=== PATIENT | female | born 1965 | race Caucasian/White ===

== ENCOUNTER 2016-07-22 04:50 | Emergency (ER) | payer OTHER ==
[~2016-07-22] VITALS: Ht 154.9 cm; Wt 73.0 kg
[~2016-07-22 04:50] MED LIST: ANTIVERT 25 MG25 M1 PO; ASPIRIN81 M1 PO; HYDROCODONE/ACE1 TA1 PO; NADOLOL40 MG PO; TRAMADOL HCL50 MG PO; VALIUM5 M1 PO; ZINC CHELATED50 M1 PO
--- NOTE | 2016-07-22 05:58 | ED HAND/WRIST INJURY COMPLAINT ---
History of Present Illness General Chief Complaint: Hand or Wrist Injury Stated Complaint: LEFT HAND PAIN FROM FINGERTIPS TO ELBOW Source: patient, old records Exam Limitations: no limitations Vital Signs & Intake/Output Vital Signs & Intake/Output Vital Signs Date Time Temp Pulse Resp B/P Pulse O2 O2 Flow FiO2 Ox Delivery Rate 07/22 0704 96.5 78 18 125/68 96 Room Air 07/22 0504 97.7 96 18 120/82 97 Room Air Allergies Coded Allergies: codeine (HIVES AND GI 07/22/16) naproxen (UNKNOWN 07/22/16) ibuprofen (ABDOMINAL PAIN 07/22/16) oxycodone (Gi 07/22/16) Reconcile Medications Aspirin 81 MG CTB 1 TAB PO DAILY HEART HEALTH (Reported) Diazepam (Valium) 5 MG TAB 1 TAB PO Q8H PRN DIZZINESS HYDROCODONE/ACETAMINOPHEN (Hydrocodon-Acetaminophen 5-325) 1 TAB TAB 1-2 TAB PO Q6P PRN PAIN Meclizine (Antivert) 25 MG TAB 1 TAB PO Q8H PRN DIZZINESS Nadolol 40 MG TAB 1 TAB PO BID HEART (Reported) TRAMADOL HCL (Tramadol HCl) 50 MG TAB 1-2 TAB PO Q6P PRN PAIN Zinc (Zinc Chelated) 50 MG TAB 1 TAB PO DAILY SUPPLEMENT (Reported) Triage Note: PT C/O PAIN FROM FINGERTIPS TO ELBOW LT SIDE, NO KNOWN INJURY,UNABLE TO MOVE FINGERS, + RADIAL PULSE Triage Nurses Notes Reviewed? yes HPI: Patient presents for evaluation of left hand and wrist pain that began last week. Patient states that the hand has been "locking up". She states that that resolved after about 12 hours. About 2 days ago she had an episode where the right hand had redness dorsally and decreased range of motion. This to resolve. After that the left hand became painful with decreased range of motion of the wrist and fingers. The pain involves the whole hand and wrist and all of the fingers. She tried Aleve without relief (last dose about 8 PM last night. The patient denies any associated visual changes or known trauma. 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 Nothing seems to make her hand feel better. Patient denies neck pain. (NATHANIEL MARTIN,DIANA Nelson) Past History Travel History Traveled to [place] past 21 day No Medical History Any Pertinent Medical History? see below for history Neurological: migraine EENT: NONE Cardiovascular: SVT Respiratory: NONE Gastrointestinal: RECTAL BLEEDING Hepatic: NONE Renal: NONE Musculoskeletal: NONE Psychiatric: NONE Endocrine: NONE Blood Disorders: NONE Cancer(s): NONE Surgical History Surgical History: non-contributory Psychosocial History What is your primary language [place] Tobacco Use: Current Daily Use Daily Tobacco Use Amount/Type: => 5 Cigarettes daily Family History Hx Contributory? No (NATHANIEL MARTIN,DIANA Nelson) Review of Systems Review of Systems Constitutional: Reports: no symptoms. EENTM: Reports: no symptoms. Respiratory: Reports: no symptoms. Cardiovascular: Reports: no symptoms. GI: Reports: no symptoms. Genitourinary: Reports: no symptoms. Musculoskeletal: Reports: see HPI. Skin: Reports: no symptoms. Neurological/Psychological: Reports: no symptoms. Hematologic/Endocrine: Reports: no symptoms. Immunologic/Allergic: Reports: no symptoms. All Other Systems: Reviewed and Negative (NATHANIEL MARTIN,DIANA Nelson) Physical Exam Physical Exam Hand Left: SEE BELOW Hand Right: normal inspection Comments: Gen.: Well-nourished, well-developed, no acute respiratory distress. Head: Normocephalic, atraumatic. Eyes: Normal inspection bilaterally Ears: Normal inspection bilaterally Nose: Normal inspection, nasal cannula in place Throat/mouth : Moist mucosa Neck: Supple, full range of motion, no goiter Heart: Regular rate and rhythm Lungs: Quiet respirations Back: Normal range of motion Extremities: Left upper extremity: Tenderness of the left wrist hand and fingers , sensation intact to light touch to the wrist hand and fingers, normal capillary refill to all fingers. No apparent trauma or ecchymoses. Decreased range of motion of the wrist and fingers due to pain. There is tenderness to percussion over the left carpal tunnel. 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 (NATHANIEL MARTIN,DIANA Nelson) Diagnostic Imaging: Viewed by Me: Radiology Read. Discussed w/RAD: Radiology Read. Radiology Impression: PATIENT: AXEL MANZANARES PRESENT AGE: 50 PATIENT ACCOUNT NO: [id number] : 69 LOCATION: [facility] ORDERING PHYSICIAN: DIANA ARMSTRONG MD SERVICE DATE: 07/22/16 EXAM TYPE: RAD - XRY-HAND, LEFT; XRY-WRIST COMPLETE-LEFT EXAMINATION: LEFT WRIST AND HAND CLINICAL INFORMATION: Pain COMPARISON: Left wrist films 07/01/2012 TECHNIQUE: 3 views of the left wrist. 3 views of the left hand FINDINGS: Metallic clips are again noted in the soft tissues adjacent to the radial styloid process unchanged from 2013. No fracture, dislocation, or other acute bony or joint space abnormality is seen in the left wrist or hand. No focal bone lesion identified. Joint spaces are preserved in the wrist and hand. IMPRESSION: No acute bony or joint space abnormality is seen in the left wrist and hand. Joint spaces are grossly normal in appearance. Metallic clips in the soft tissues adjacent to the distal radius unchanged DICTATED BY: MARCELLUS SALAZAR MD DATE/ TIME DICTATED:07/22/16717 INVESTIGATIVE AGENT:CHAVA DATE/TIME TRANSCRIBED: 07/22/16717 CONFIDENTIAL, DO NOT COPY WITHOUT APPROPRIATE AUTHORIZATION. < Electronically signed in Other Vendor System> SIGNED BY: MARCELLUS SALAZAR MD 07/22/16724 (YAMILET DEE MD) Departure Departure Disposition: HOME OR SELF CARE Condition: Stable Clinical Impression Primary Impression: Left wrist pain Departure Forms: Customer Survey General Discharge Information (NATHANIEL MARTIN,DIANA Nelson) Departure Referrals: CAN MARTIN,SHANNON RAMIREZ MD,CHAN (PCP/Family) Additional Instructions: WEAR SPLINT FOR COMFORT RETURN IF SYMPTOMS WORSEN OR FOR ANY COCNERNS (YAMILET DEE MD) Procedures Splinting Location: LWRIST Pre-Made Type: velcro Splint: wrist Splint Applied By: splint applied by wi Pre-Proc Neuro Vasc Exam: normal Post-Proc Neuro Vasc Exam: normal (YAMILET DEE MD)
[2016-07-22 07:04] VITALS: BP 125/68
--- NOTE | 2016-07-22 07:25 | RADIOLOGY REPORT ---
EXAMINATION: LEFT WRIST AND HAND CLINICAL INFORMATION: Pain COMPARISON: Left wrist films 07/01/2012 TECHNIQUE: 3 views of the left wrist. 3 views of the left hand FINDINGS: Metallic clips are again noted in the soft tissues adjacent to the radial styloid process unchanged from 2013. No fracture, dislocation, or other acute bony or joint space abnormality is seen in the left wrist or hand. No focal bone lesion identified. Joint spaces are preserved in the wrist and hand. IMPRESSION: No acute bony or joint space abnormality is seen in the left wrist and hand. Joint spaces are grossly normal in appearance. Metallic clips in the soft tissues adjacent to the distal radius unchanged
== END 2016-07-22 08:00 ==
LOC: ERH 04:50
DX: M25.532 Pain in left wrist (principal)
CPT/HCPCS: 73110-LT; 73130-LT; 96372; J1885

== ENCOUNTER 2016-11-20 14:19 | Inpatient (IN) | payer OTHER ==
[~2016-11-20] VITALS: Ht 154.9 cm; Wt 68.9 kg
--- NOTE | 2016-11-20 14:37 | NUR ---
PT C/O LOWER BACK PAIN THAT RADIATES INTO ABDOMEN. PT STATES SHE FEELS LIKE HER ABDOMEN IS BLOATED SO SHE TOOK A GAS X BUT IT DIDN'T HELP. PT TAKING PLAQUNIL FOR HER RECENTLY DIAGNOSED RA. STATES SOME DIARRHEA THIS MORNING
--- NOTE | 2016-11-20 15:33 | NUR ---
IV ESTABLISHED, PT STATING SHE HAS HAD LOWER BACK PAIN THAT HAS BEEN RADIATING TO HER PELVIC AREA X 1 DAY, REPORTING DIFFUSE PELVIC PAIN, DIFFUSELY TENDER BILATERAL LOWER QUADRANTS. REPORTING INTERMITTENT DIARRHEA WHICH IS A BASELINE FOR PATIENT.
[2016-11-20 15:42] LABS: ABSOLUTE BASOPHIL COUNT 0 /CUMM (0.0-0.2); ABSOLUTE EOSINOPHIL COUNT 0 /CUMM (0.0-0.7); ABSOLUTE GRANULOCYTE CT 11.3 /CUMM (1.4-6.5); ABSOLUTE LYMPH COUNT 1.3 /CUMM (1.2-3.4); ABSOLUTE MONOCYTE COUNT 0.9 /CUMM (0.10-0.60); BASOPHIL % 0.2 % (0.0-2.0); EOSINOPHIL % 0.4 % (0-5); GRANULOCYTE % 83.1 % (42.2-75.2); HEMATOCRIT 37.5 % (37-47); MEAN CORPUSCULAR HGB 28.3 PG (27.0-31.0); MEAN CORPUSCULAR HGB CONC 33.3 G/DL (33.0-37.0); MEAN CORPUSCULAR VOLUME 85.2 FL (81.0-99.0); MEAN PLATELET VOLUME 7.6 FL (7.4-10.4); PLATELET COUNT 381 /CUMM (130-400); RBC DISTRIBUTION WIDTH 13.9 % (11.5-14.5); WHITE BLOOD CELL COUNT 13.6 /CUMM (4.8-10.8)
--- NOTE | 2016-11-20 15:44 | NUR ---
DR TIRADO TO BEDSIDE TO DARVIN
[2016-11-20] MEDS ORDERED: HYDROXYCHLOROQ200 M2 PO (16:03)
[2016-11-20] MEDS ORDERED: VITAMIN D2000 UNI1 PO (16:04)
[2016-11-20] MEDS ORDERED: ZANTAC150 M1 PO (16:04)
--- NOTE | 2016-11-20 16:13 | NUR ---
PT MEDICATED PER EMAR, REQUESTING TO STAY IN OWN SCRUBS.
--- NOTE | 2016-11-20 16:22 | NUR ---
URINE TRIO SENT
--- NOTE | 2016-11-20 16:51 | CT SCAN REPORT ---
EXAMINATION: CT ABDOMEN AND PELVIS WITH CONTRAST CLINICAL INFORMATION: Bilateral lower quadrant tenderness. Lower back pain. COMPARISON: CT abdomen and pelvis 09/29/2012. TECHNIQUE: Multidetector volumetric imaging was performed of the abdomen and pelvis before and after the IV administration of 95 mL of Optiray 320 intravenous contrast. Sagittal and coronal reformatted images were obtained on the technologist's workstation. DLP: 336 mGy-cm FINDINGS: LUNG BASES: The visualized lung bases are unremarkable. LIVER, GALLBLADDER, AND BILIARY TREE: The liver is normal in size, shape, and attenuation. No focal hepatic lesion or biliary ductal dilatation is present. The gallbladder is unremarkable with no evidence of radiopaque gallstones, gallbladder wall thickening, or obvious pericholecystic inflammatory changes. PANCREAS: Unremarkable. SPLEEN: Unremarkable. ADRENAL GLANDS: Unremarkable. KIDNEYS AND URETERS: The kidneys are normal in size, shape, and attenuation. No hydronephrosis, hydroureter, or calculi seen. No perinephric stranding. BLADDER: Unremarkable. GASTROINTESTINAL TRACT: Scattered colonic diverticulosis, notably involving the descending and rectosigmoid colon. Circumferential thickening and pericolonic inflammatory changes surrounding a segment of the sigmoid colon, spanning approximately 7.8 cm in length within the left lower quadrant of the abdomen. No extraluminal foci of air to suggest perforation and no pericolonic fluid collections. Normal anatomic orientation of the stomach relative to the duodenum. Normal caliber of abdominal and pelvic bowel loops, without evidence of obstruction or ileus. The appendix is surgically absent. ABDOMINAL WALL: No significant hernia is appreciated. LYMPH NODES: No significant abdominal or pelvic adenopathy. VASCULAR: Patent abdominal vasculature. Normal course and caliber of the abdominal aorta and its branching vessels, without aneurysmal dilatation. PELVIC VISCERA: Unremarkable. OSSEOUS STRUCTURES: No acute osseous abnormality. Normal alignment of the imaged thoracolumbar spine. No visible destructive osseous lesions. IMPRESSION: Scattered colonic diverticulosis, notably involving the descending and rectosigmoid colon. Circumferential thickening and pericolonic inflammatory changes surrounding a segment of the sigmoid colon, spanning approximately 7.8 cm in length within the left lower quadrant of the abdomen. Primary diagnostic consideration is for acute uncomplicated sigmoid diverticulitis. No extraluminal foci of air to suggest perforation and no pericolonic fluid collections.
--- NOTE | 2016-11-20 17:36 | ED GI/GU/ABDOMINAL COMPLAINT ---
History of Present Illness General Chief Complaint: General Adult Stated Complaint: LOWER BACK RADIATING TO PELVIS Source: patient, family, old records Exam Limitations: no limitations Vital Signs & Intake/Output Vital Signs & Intake/Output Vital Signs Date Time Temp Pulse Resp B/P B/P Pulse O2 O2 Flow FiO2 Mean Ox Delivery Rate 11/20 1717 97.8 100 20 98/60 99 Room Air 11/20 1509 99 Room Air 11/20 1436 97.0 102 20 111/69 100 Room Air Allergies Coded Allergies: codeine (HIVES AND GI 07/22/16) naproxen (hernández gi 11/20/16) ibuprofen (ABDOMINAL PAIN 07/22/16) oxycodone (PROJECTILE VOMITING 11/20/16) Reconcile Medications Cholecalciferol (Vitamin D3) (Vitamin D) 2,000 UNIT TABLET 1 TAB PO DAILY SUPPLEMENT (Reported) Hydroxychloroquine Sulfate 200 MG TABLET 1 TAB PO DAILY RA (Reported) Magnesium Oxide (Magnesium) 500 MG CAPSULE 1 CAP PO DAILY supplement ( Reported) Ranitidine HCl (Zantac) 150 MG TABLET 2 TAB PO BID GI (Reported) Triage Note: PT C/O LOWER BACK PAIN THAT RADIATES INTO ABDOMEN. PT STATES SHE FEELS LIKE HER ABDOMEN IS BLOATED SO SHE TOOK A GAS X BUT IT DIDN'T HELP. PT TAKING PLAQUNIL FOR HER RECENTLY DIAGNOSED RA. STATES SOME DIARRHEA THIS MORNING Triage Nurses Notes Reviewed? yes LMP (ages 10-50): hysterectomy ? n Is pt currently ? No Onset: yesterday Duration: day(s):, constant, continues in ED, getting worse Timing: recent history Quality/Severity: aching, severe Location: left lower quadrant, right lower quadrant Radiation: back Activities at Onset: none Prior Abdominal Problems: similar symptoms Past Sexual History: Unobtainable at this time Modifying Factors: Worsens With: eating, palpation. Associated Symptoms: abdominal pain, loss of appetite, nausea/vomiting, back pain HPI: 1 day prior to admission patient complains of loss of appetite back pain radiating to the bilateral lower quadrant described as achy severe sharp associated with nausea anorexia diarrhea. Denies fever chills chest pain cough shortness of breath headache dysuria rash bleeding. Past History Travel History Traveled to [place] past 21 day No Medical History Any Pertinent Medical History? see below for history Neurological: migraine EENT: NONE Cardiovascular: SVT Respiratory: NONE Gastrointestinal: RECTAL BLEEDING Hepatic: NONE Renal: NONE Musculoskeletal: NONE Psychiatric: NONE Endocrine: NONE Blood Disorders: NONE Cancer(s): NONE Surgical History Surgical History: non-contributory Psychosocial History What is your primary language Kyrgyz Tobacco Use: Current Daily Use Daily Tobacco Use Amount/Type: => 5 Cigarettes daily ETOH Use: occasional use Illicit Drug Use: denies illicit drug use Family History Hx Contributory? No Review of Systems Review of Systems Constitutional: Reports: no symptoms. EENTM: Reports: no symptoms. Respiratory: Reports: no symptoms. Cardiovascular: Reports: no symptoms. GI: Reports: see HPI, abdominal pain, diarrhea, nausea, vomiting. Genitourinary: Reports: no symptoms. Musculoskeletal: Reports: see HPI, back pain. Skin: Reports: no symptoms. Neurological/Psychological: Reports: no symptoms. Hematologic/Endocrine: Reports: no symptoms. Immunologic/Allergic: Reports: no symptoms. All Other Systems: Reviewed and Negative Physical Exam Physical Exam General Appearance: well developed/nourished, alert, awake, anxious, severe distress, obese Head: atraumatic, normal appearance Eyes: Bilateral: normal appearance, PERRL, EOMI, normal inspection. Ears, Nose, Throat, Mouth: hearing grossly normal, moist mucous membrane Neck: normal inspection, supple, full range of motion, normal alignment Respiratory: normal breath sounds, chest non-tender, no respiratory distress, quiet respiration, lungs clear Cardiovascular: regular rate/rhythm, normal peripheral pulses, norml femoral pulses equa Peripheral Pulses: 4+ carotid (R), 4+ carotid (L) Gastrointestinal: soft, abnormal bowel sounds, distention, tenderness Back: normal inspection, normal range of motion Extremities: normal range of motion, no ligament instability Neurologic/Psych: no motor/sensory deficits, awake, alert, oriented x 3, normal gait, normal mood/affect Skin: intact, normal color, warm/dry Core Measures ACS in differential dx? No Severe Sepsis Present: No Septic Shock Present: No Progress Differential Diagnosis: bowel obstruction, diverticulitis, gastritis, pancreatitis, SBO Plan of Care: Orders Procedure Date/time Status Regular Diet 11/21 B Active BLOOD CULTURE 11/20 1811 Active Patient Data 11/20 1805 Active OXYGEN SETUP (GEN) 11/20 173 Active Saline Lock 11/20 1736 Active Admit to inpatient 11/20 1736 Active Vital Signs 11/20 173 Active Activity/Ambulation 11/20 1736 Active Code Status 11/20 173 Active Add-on Test (ER Only) 11/20 1551 Active URINALYSIS 11/20 1551 Complete LIPASE 11/20 1521 Complete LACTIC ACID 11/20 1521 Complete COMPREHENSIVE METABOLIC PANEL 11/20 1515 Complete CBC WITHOUT DIFFERENTIAL 11/20 1515 Complete Current Medications Sig/Susanna Start time Last Medication Dose Stop Time Status Admin Metronidazole 500 MG IQ8 11/21 0000 UNVr (Flagyl) N/A 1 UNIT (No Carrier) Famotidine 20 MG BID 11/20 2200 UNVr (Pepcid) Hydroxychloroquine 200 MG DAILY 11/20 182 UNVr Sulfate (Plaquenil 200MG Tab) Ceftriaxone Sodium 1,000 MG DAILY 11/20 181 UNVr (Rocephin) Laboratory Tests 11/20/16 1618: Urinalysis LIGHT H, Urine Color YEL, Urine Clarity CLEAR, Urine pH 6.0, Ur Specific [place] 1.015, Urine Protein NEG, Urine Ketones NEG, Urine Nitrite NEG, Urine Bilirubin NEG, Urine Urobilinogen 0.2, Ur Leukocyte Esterase NEG, Ur Microscopic SEDIMENT EXAMINED, Urine RBC 1-3, Urine WBC RARE, Urine Bacteria RARE H, Urine Hemoglobin MOD H, Urine Glucose NEG 11/20/16 1521: Anion Gap 13, Estimated GFR > 60, BUN/Creatinine Ratio 18.6, Glucose 81, Lactic Acid 1.1, Calcium 9.6, Total Bilirubin 0.7, AST 15, ALT 24, Alkaline Phosphatase 87, Total Protein 7.0, Albumin 4.3, Globulin 2.7, Albumin/Globulin Ratio 1.6, Lipase 272, CBC w Diff NO MAN DIFF REQ, RBC 4.40, MCV 85.2, MCH 28.3, RDW 13.9, MPV 7.6, Gran % 83.1 H, Lymphocytes % 9.5 L, Monocytes % 6.8, Eosinophils % 0.4, Basophils % 0.2, Absolute Granulocytes 11.3 H, Absolute Lymphocytes 1.3, Absolute Monocytes 0.9 H, Absolute Eosinophils 0, Absolute Basophils 0, PUBS MCHC 33.3 Microbiology 11/20 1810 BLOOD: Blood Culture - ORD 11/20 1810 BLOOD: Blood Culture - ORD Diagnostic Imaging: Viewed by Me: CT Scan. Discussed w/RAD: CT Scan. Radiology Impression: Scattered colonic diverticulosis, notably involving the descending and rectosigmoid colon. Circumferential thickening and pericolonic inflammatory changes surrounding a segment of the sigmoid colon, spanning approximately 7.8 cm in length within the left lower quadrant of the abdomen. Primary diagnostic consideration is for acute uncomplicated sigmoid diverticulitis. No extraluminal foci of air to suggest perforation and no pericolonic fluid collections. Initial ED EKG: none Departure Departure Disposition: STILL A PATIENT Condition: Stable Clinical Impression Primary Impression: Diverticulitis Qualifiers: Diverticulitis site: unspecified part of intestinal tract Diverticulitis bleeding: without bleeding Diverticulitis complication: without perforation or abscess Qualified Code: K57.92 - Diverticulitis of intestine, part unspecified, without perforation or abscess without bleeding Secondary Impressions: Back pain Qualifiers: Back pain location: low back pain Chronicity: acute Back pain laterality: bilateral Sciatica presence: without sciatica Qualified Code: M54.5 - Low back pain Referrals: CHAN RAMIREZ MD (PCP/Family) Departure Forms: Customer Survey General Discharge Information Admission Note Spoke With: CHAN RAMIREZ MD Documentation of Exam: Documentation of any treatments & extenuating circumstances including Concerns Regarding Discharge (functional status, medication knowledge or non-compliance, living conditions, etc.) that warrant an admission rather than observation: IV analgesia IV antibiotics IV antiemetics IV fluids advance diet medication adjustment serial lab exam continuing care discharge planning
[2016-11-20] MEDS ORDERED: MAGNESIUM500 M2 PO (18:22)
--- NOTE | 2016-11-20 18:22 | History & Physical ---
FABIANA MARTIN,NUBIA 11/20/16 9510: General Information and HPI MD Statement: I have seen and personally examined AXEL MANZANARES and documented this H&P. The patient is a 50 year old F who presented with a patient stated chief complaint of [abdominal pain and diarrhea]. Source of Information: patient Exam Limitations: no limitations History of Present Illness: Patient is a 50-year-old female with past medical history significant for SVT, rectal bleeding, ocular migraines, recurrent diverticulitis, recently diagnosed limited arthritis (started on plaquinel) presented [facility] due to lower abdominal pain and diarrhea started 1 day prior to admission. Patient started experiencing diarrhea yesterday had around 7-8 episodes coffee-ground in color and nonbloody followed by lower back pain radiating to front. Her pain progressively worsened today morning. She had a single episode of diarrhea today, however her abdominal pain got worse despite taking Gas-X. Her pain is 7 -8/10, spasmodic in nature, associated with significant abdominal bloating. She also started to notice headache (ocular migraines). She did have chills and feels nauseous for the past. She denies any fevers, vomiting, changes in urinary habits, recent infections, sick contacts, travel. She did have a history of recurrent diverticulitis for the past 7 years, underwent endoscopy/colonoscopy by Dr. ku 4 years ago. She claims polyps were removed at that time but however unsure when the be the next follow-up colonoscopy. Her last episode of diverticulitis was last year. She smoked one pack per day for the past 50 years, occasionally takes marijuana during tomcat arthritis flareups. Allergies/Medications Allergies: Coded Allergies: codeine (HIVES AND GI 07/22/16) naproxen (hernández gi 11/20/16) ibuprofen (ABDOMINAL PAIN 07/22/16) oxycodone (PROJECTILE VOMITING 11/20/16) Home Med list Cholecalciferol (Vitamin D3) (Vitamin D) 2,000 UNIT TABLET 1 TAB PO DAILY SUPPLEMENT (Reported) Hydroxychloroquine Sulfate 200 MG TABLET 1 TAB PO DAILY RA (Reported) Magnesium Oxide (Magnesium) 500 MG CAPSULE 1 CAP PO DAILY supplement ( Reported) Ranitidine HCl (Zantac) 150 MG TABLET 2 TAB PO BID GI (Reported) Compliance With Home Meds: GOOD Past History Travel History Traveled to [place] past 21 day No Medical History Neurological: migraine EENT: NONE Cardiovascular: SVT Respiratory: NONE Gastrointestinal: RECTAL BLEEDING Hepatic: NONE Renal: NONE Musculoskeletal: NONE Psychiatric: NONE Endocrine: NONE Blood Disorders: NONE Cancer(s): NONE Surgical History Surgical History: non-contributory Past Family/Social History Psychosocial History Where do you live? Home Who Do You Live With? spouse Services at Home: None Smoking Status: Current Everyday Smoker ETOH Use: occasional use Illicit Drug Use: marijuana Functional Ability ADLs Independent: dressing, eating, toileting, bathing. Ambulation: independent IADLs Independent: shopping, housework, finances, food prep, telephone, transportation , medication admin. Review of Systems Review of Systems Constitutional: Reports: see HPI. EENTM: Reports: no symptoms. Cardiovascular: Reports: no symptoms. Respiratory: Reports: no symptoms. GI: Reports: abdominal pain, diarrhea, nausea. Exam & Diagnostic Data Last 24 Hrs of Vital Signs/I&O Vital Signs Date Time Temp Pulse Resp B/P B/P Pulse O2 O2 Flow FiO2 Mean Ox Delivery Rate 11/20 2018 98.2 91 18 106/52 97 Room Air 11/20 1717 97.8 100 20 98/60 99 Room Air 11/20 1509 99 Room Air 11/20 1436 97.0 102 20 111/69 100 Room Air Intake & Output 11/20 1600 11/20 0800 11/20 0000 Intake Total 0 Output Total Balance 0 Intake, Oral 0 Patient 68.946 kg Weight Weight Reported by Patient Measurement Method Physical Exam General Appearance Alert, Oriented X3, Cooperative, Mild Distress Skin No Rashes, No Breakdown HEENT Atraumatic, PERRLA, EOMI Neck Supple, No JVD Cardiovascular Normal S1, Normal S2 Lungs Clear to Auscultation, Normal Air Movement Abdomen Normal Bowel Sounds, tender in the left lower quadrant with distention Neurological Normal Gait, Normal Speech, Strength at 5/5 X4 Ext, Normal Tone, Sensation Intact Extremities No Clubbing, No Cyanosis, No Edema, pain in the low back region Vascular Normal Pulses, Pulses Symmetrical Body Front and Back (Adult) 1) Tenderness to palpation 2) mild dull pain Last 24 Hrs of Labs/Omari: Laboratory Tests 11/20/16 1618: Urinalysis LIGHT H, Urine Color YEL, Urine Clarity CLEAR, Urine pH 6.0, Ur Specific [place] 1.015, Urine Protein NEG, Urine Ketones NEG, Urine Nitrite NEG, Urine Bilirubin NEG, Urine Urobilinogen 0.2, Ur Leukocyte Esterase NEG, Ur Microscopic SEDIMENT EXAMINED, Urine RBC 1-3, Urine WBC RARE, Urine Bacteria RARE H, Urine Hemoglobin MOD H, Urine Glucose NEG 11/20/16 1521: Anion Gap 13, Estimated GFR > 60, BUN/Creatinine Ratio 18.6, Glucose 81, Lactic Acid 1.1, Calcium 9.6, Total Bilirubin 0.7, AST 15, ALT 24, Alkaline Phosphatase 87, Total Protein 7.0, Albumin 4.3, Globulin 2.7, Albumin/Globulin Ratio 1.6, Lipase 272, CBC w Diff NO MAN DIFF REQ, RBC 4.40, MCV 85.2, MCH 28.3, RDW 13.9, MPV 7.6, Gran % 83.1 H, Lymphocytes % 9.5 L, Monocytes % 6.8, Eosinophils % 0.4, Basophils % 0.2, Absolute Granulocytes 11.3 H, Absolute Lymphocytes 1.3, Absolute Monocytes 0.9 H, Absolute Eosinophils 0, Absolute Basophils 0, PUBS MCHC 33.3 Microbiology 11/20 1851 BLOOD: Blood Culture - RECD 11/20 184 BLOOD: Blood Culture - RECD Assessment/Plan Assessment: Patient is a 50-year-old female with past medical history significant for SVT, rectal bleeding, ocular migraines, recurrent diverticulitis, recently diagnosed limited arthritis (started on plaquinel) presented to the [facility] due to lower abdominal pain and diarrhea started 1 day prior to admission. she is afebrile, pulse 102, blood pressure 98/60 mmHg on room air at admission. Significant labs include white count of 13.6. Imaging shows scattered cholestatic diverticulosis involving descending and rectosigmoid colon along with circumferential thickening and pericolic inflammation surrounding sigmoid colon. Patient is admitted for another episode of diverticulitis. Admitted to general medicine floor Acute uncomplicated diverticulitis * Monitor vitals closely * Started on IV ceftriaxone and metronidazole * Started on clear liquid diet * Follow-up with cultures * GI consult if needed in a.m. * Pain management with Percocet, ondansetron for nausea * Hydration with NS @ 75ml/hr * Pepcid 20 mg twice a day * Stool guaiac if she had any bowel movement History of rheumatoid arthritis * Continue Plaquenil 200 mg daily Nicotine dependence * Smoking 1 pack per day for the past 30 years * Nicotine patch 7 mg daily DVT prophylaxis * Alps CODE STATUS * Full code As Ranked By This Provider Problem List: 1. Abdominal pain 2. Diverticulitis Core Measures/Miscellaneous Acute Coronary Syndrome ACS Diagnosis: No Cerebrovascular Accident CVA/TIA Diagnosis: No Congestive Heart Failure CHF Diagnosis: No VTE (View Protocol) VTE Risk Factors: Age > 40 No [facility] prophylaxis d/t: No contraindications No VTE Pharm Prophylaxis d/t: No contraindications VTE Diagnosis: No VTE Type: NONE VTE Confirmed by (Test): NONE Sepsis (View Protocol) Severe Sepsis Present: No Septic Shock Septic Shock Present: No Miscellaneous Documentation Attending Case Discussed With: CHAN RAMIREZ MD Primary Care Physician: CHAN RAMIREZ MD Patient sees these Specialists for RA Level of Patient Care: General Medicine PERLITA RENEE 11/20/16 2674: Resident Review Statement Resident Statement: examined this patient, discussed with internal investigator, agreed with internal investigator Other Findings: This is a 50 YO lady w/PMH significant for RA who presented to the ED w/lower abdominal pain radiating to her back. She also reports decreased appetite and nausea and loose bowel movement . Denies headache, fever, chills, CP, SOB, urinary sympotms. Physical exam at the time of admission:VSS,NAD, HEENT: HNCAT, PERRLA, EOMI. Neck: Supple, no JVD, no carotid bruit, no lymphadenopathy. CV: RRR, no murmur. Chest: CTA BL. Abdomen: Normal bowel sounds, soft, ND, tenderness to palpation in left lower quadrant, no rebound. Back: NL inspection, NL ROM, no tenderness Extremities:No lower extremity edema, pulses normal and symmetrical. Neurology: AAO 3, cranial nerves II-12 intact, normal reflexes skin: no lesions Availabel labs and imaging data reviewed. CT abd pelvis suggestin acute uncomplicated sigmoid diverticulitis. Patient received one dose of IV Unasyn in the ED. Problem list * Acute diverticulitis * H/O RA * H/O GERD Plan * VS per protocol * Monitor Is&Os * Clear liquid diet; advance as tolerated * Adequate pain management * Blood cultures * Will start the patient on IV ceftriaxone and metronidazole * C/W VEGETABLE PACKER hydroxychlorogquine * GI and DVT prophylaxis * Pt is full code. CHAN RAMIREZ MD 11/21/16 0954: Attending MD Review Statement Attending Statement Attending MD Statement: examined this patient, discuss w/resident/PA/PR SPECIALIST, discussed with family, reviewed EMR data (avail)
--- NOTE | 2016-11-20 19:05 | NUR ---
PT HAS A BED 216-
--- NOTE | 2016-11-20 19:19 | NUR ---
REPORT TO WENDI OCAMPO
[2016-11-20 20:19] VITALS: BP 106/52
--- NOTE | 2016-11-20 20:40 | NUR ---
PT ARRIVED TO FLOOR FROM ER VIA BED WITH DISTRIBUTION. PT AWAKE, A/OX3, ON ROOM AIR, PT WALKED FROM STRETCHER TO BED WITH STEADY GAIT NOTED, IV SITE INTACT AND HEPLOCKED, ABD SOFT/DISTENDED WITH TENDERNESS NOTED, PT C/O PAIN IN LOWER BACK RADIATING TO LOWER ABD/PELVIS 5/10, PT ALSO REPORTING LACK OF APPETITE, SKIN INTACT, FAMILY AT BEDSIDE, PT ORIENTED TO ROOM, NEEDS WITHIN REACH, SAFETY MAINTAINED.
[2016-11-21 06:58] VITALS: BP 110/60
--- NOTE | 2016-11-21 07:15 | PN- Housestaff ---
Subjective Follow-up For: Acute uncomplicated diverticulitis Subjective: Seen and examined the patient today morning She is still having pain, but improving. She denies any further episode of diarrhea, however passing flatus. She did have occasional nausea, requesting for opiate pain medications. Explained in detail about effect of opiates on bowel movement given she is having acute diverticulitis. She is provided with Tylenol. she is able to walk around without any dizziness lightheadedness. Able to tolerate diet well. Review of Systems Constitutional: Reports: see HPI. Gastrointestinal: Reports: abdominal pain. Comments: Otherwise negative except above Objective Last 24 Hrs of Vital Signs/I&O Vital Signs Date Time Temp Pulse Resp B/P B/P Pulse O2 O2 Flow FiO2 Mean Ox Delivery Rate 11/21 0658 98.7 90 18 110/60 96 Room Air 11/20 2019 98.2 91 18 106/52 97 Room Air 11/20 1717 97.8 100 20 98/60 99 Room Air 11/20 1509 99 Room Air 11/20 1436 97.0 102 20 111/69 100 Room Air Intake & Output 11/21 0800 11/21 0000 11/20 1600 Intake Total 920 440 0 Output Total 500 800 Balance 420 -360 0 Intake, IV 800 200 Intake, Oral 120 240 0 Output, Urine 500 800 Patient 68.946 kg 68.946 kg Weight Weight Reported by Patient Reported by Patient Measurement Method Physical Exam General Appearance: Alert, Oriented X3, Cooperative Skin: No Rashes, No Breakdown HEENT: Atraumatic, PERRLA, EOMI Neck: Supple Cardiovascular: Normal S1, Normal S2 Lungs: Clear to Auscultation, Normal Air Movement Abdomen: Normal Bowel Sounds, Soft, gaseous distention, tenderness in lower left quadrant Neurological: Normal Gait, Normal Speech, Strength at 5/5 X4 Ext, Normal Tone, Sensation Intact Extremities: No Clubbing, No Cyanosis ( this is a), No Edema (mmy) Current Medications: Current Medications Sig/Susanna Start time Last Medication Dose Route Stop Time Status Admin Ampicillin Sodium/ 0 .STK-MED ONE 11/20 180 DC Sulbactam Sodium .ROUTE Ampicillin Sodium/ 3,000 MG ONCE ONE 11/20 1745 DC 11/20 Sulbactam Sodium IV 11/20 181 1805 Sodium Chloride 100 ML Ceftriaxone Sodium 0 .STK-MED ONE 11/20 1845 DC .ROUTE Ceftriaxone Sodium 1,000 MG DAILY 11/20 1811 AC 11/20 IV 1858 Diphenhydramine HCl 25 MG ONCE ONE 11/20 2130 DC 11/20 PO 11/20 2130 2230 Famotidine 20 MG BID 11/20 2200 AC 11/20 PO 2136 Hydromorphone HCl 0 .STK-MED ONE 11/20 1805 DC .ROUTE Hydromorphone HCl 1 MG ONCE ONE 11/20 1745 DC 11/20 IV 11/20 1746 1805 Hydroxychloroquine 200 MG DAILY 11/20 1821 AC 11/20 Sulfate PO 1858 Metronidazole 500 MG IQ8 11/21 0000 AC 11/21 N/A 1 UNIT IV 0106 Morphine Sulfate 0 .STK-MED ONE 11/20 1611 DC .ROUTE Morphine Sulfate 4 MG ONCE ONE 11/20 1600 DC 11/20 IV 11/20 1601 1612 Nicotine 7 MG DAILY 11/20 2300 AC TOP Nicotine 7 MG DAILY 11/208 CAN TOP Ondansetron HCl 0 .STK-MED ONE 11/20 1611 DC .ROUTE Ondansetron HCl 4 MG ONCE ONE 11/20 1600 DC 11/20 IV 11/20 1601 1612 Oxycodone/ 1 TAB Q4P PRN 11/20 2230 AC 11/21 Acetaminophen PO 0320 Sodium Chloride 1,000 ML Q10H 11/20 1900 AC 11/21 IV 0536 Sodium Chloride 1,000 ML BOLUS ONE 11/20 1600 DC 11/20 IV 11/20 1659 1612 Assessment/Plan Assessment: Patient is a 50-year-old female with past medical history significant for SVT, rectal bleeding, ocular migraines, recurrent diverticulitis, recently diagnosed limited arthritis (started on plaquinel) presented to the [facility] due to lower abdominal pain and diarrhea started 1 day prior to admission. she is afebrile, pulse 102, blood pressure 98/60 mmHg on room air at admission. Significant labs include white count of 13.6. Imaging shows scattered cholestatic diverticulosis involving descending and rectosigmoid colon along with circumferential thickening and pericolic inflammation surrounding sigmoid colon. Patient is admitted for another episode of diverticulitis. Admitted to general medicine floor Acute uncomplicated diverticulitis * Started on IV ceftriaxone and metronidazole * Continue clear liquid diet * Follow-up with cultures * Pain management with Tylenol, ondansetron for nausea * Discontinued fluids * Pepcid 20 mg twice a day * Stool guaiac if she had any bowel movement * Daily CBC to monitor white count History of rheumatoid arthritis * Continue Plaquenil 200 mg daily Nicotine dependence * Smoking 1 pack per day for the past 30 years * Nicotine patch 7 mg daily DVT prophylaxis * Alps CODE STATUS * Full code Problem List: 1. Abdominal pain 2. Diverticulitis 3. Back pain Pain Ratin Pain Location: Abdominal pain Pain Goal: Pain 4 or less Pain Plan: Tylenol when necessary Tomorrow's Labs & Rationales: cbc to monitor white count
--- NOTE | 2016-11-21 09:50 | Admission Certification ---
Admission Certification Certification Statement - As attending physician, I certify that at the time of - admission, based on clinical presentation, severity of - symptoms, need for further diagnostic testing and - therapeutic interventions, and risk of adverse outcomes - without in-hospital treatment, in my clinical assessment, - this patient requires an acute hospital stay for a minimum - of two nights or longer. I have also considered psychsocial - factors such as support system, advanced age, financial - issues, cognitive issues, and failed out-patient treatments, - past re-admission history, safety of patient, and lack of - compliance as applicable. Specific rationale supporting this admission is: Acute diverticulitis
--- NOTE | 2016-11-21 09:54 | PN- Att Addend ---
Attending Addendum Attending Brief Note Patient reports improved abdominal discomfort however she is not passing any gas or had any bowel movements. General Appearance: Alert, No Acute Distress Skin: Grossly normal HEENT: PEERLA Neck: Supple, No JVD Cardiovascular: Regular Rate, Normal S1, Normal S2, No Murmurs Lungs: Clear to Auscultation, Normal Air Movement Abdomen: distended and no bowel sounds Assessment 50-year-old with history of SVT, GI bleeds, recurrent diverticulitis in the past and according to her her last episode was about 3 years back and last colonoscopy 4 years back now presenting with nausea vomiting and diarrhea and CAT scan suggesting non-complicated diverticulitis. She is currently tolerating clear liquid diet and on IV antibiotics. We will continue current management until improved bowel movements and abdominal pain. Plan Continue current IV antibiotics Follow cultures Continue clear liquid diet Pain meds when necessary Continue other home meds DVT prophylaxis Current Medications Sig/Susanna Start time Last Medication Dose Route Stop Time Status Admin Acetaminophen 650 MG Q4P PRN 11/21 0945 AC PO Ampicillin Sodium/ 0 .STK-MED ONE 11/20 1805 DC Sulbactam Sodium .ROUTE Ampicillin Sodium/ 3,000 MG ONCE ONE 11/20 1745 DC 11/20 Sulbactam Sodium IV 11/20 1814 1805 Sodium Chloride 100 ML Ceftriaxone Sodium 0 .STK-MED ONE 11/20 1845 DC .ROUTE Ceftriaxone Sodium 1,000 MG DAILY 11/20 1811 AC 11/21 IV 0906 Diphenhydramine HCl 25 MG ONCE ONE 11/20 2130 DC 11/20 PO 11/20 2131 2230 Famotidine 20 MG BID 11/20 2200 11/21 PO 0907 Hydromorphone HCl 0 .STK-MED ONE 11/20 1805 DC .ROUTE Hydromorphone HCl 1 MG ONCE ONE 11/20 1745 DC 11/20 IV 11/20 1746 1805 Hydroxychloroquine 200 MG DAILY 11/20 1821 11/21 Sulfate PO 0907 Metronidazole 500 MG IQ8 11/21 0000 AC 11/21 N/A 1 UNIT IV 0821 Morphine Sulfate 0 .STK-MED ONE 11/20 1611 DC .ROUTE Morphine Sulfate 4 MG ONCE ONE 11/20 1600 DC 11/20 IV 11/20 1601 1612 Nicotine 7 MG DAILY 11/20 2300 06/28 TOP 0907 Nicotine 7 MG DAILY 11/208 CAN TOP Ondansetron HCl 0 .STK-MED ONE 11/20 1611 DC .ROUTE Ondansetron HCl 4 MG ONCE ONE 11/20 1600 DC 11/20 IV 11/20 1601 1612 Oxycodone/ 1 TAB Q4P PRN 11/20 2230 DC 11/21 Acetaminophen PO 0819 Sodium Chloride 1,000 ML Q10H 11/20 1900 DC 11/21 IV 0536 Sodium Chloride 1,000 ML BOLUS ONE 11/20 1600 DC 11/20 IV 11/20 1659 1612 Laboratory Tests 11/20 11/20 1618 1521 Chemistry Sodium (137 - 145 mmol/L) 138 Potassium (3.5 - 5.1 mmol/L) 4.0 Chloride (98 - 107 mmol/L) 102 Carbon Dioxide (22 - 30 mmol/L) 23 Anion Gap (5 - 16) 13 BUN (7 - 17 mg/dL) 13 Creatinine (0.5 - 1.0 mg/dL) 0.7 Estimated GFR (>60 ml/min) > 60 BUN/Creatinine Ratio (7 - 25 %) 18.6 Glucose (65 - 99 mg/dL) 81 Lactic Acid (0.7 - 2.1 mmol/L) 1.1 Calcium (8.4 - 10.2 mg/dL) 9.6 Total Bilirubin (0.2 - 1.3 mg/dL) 0.7 AST (14 - 36 U/L) 15 ALT (9 - 52 U/L) 24 Alkaline Phosphatase (<127 U/L) 87 Total Protein (6.3 - 8.2 g/dL) 7.0 Albumin (3.5 - 5.0 g/dL) 4.3 Globulin (1.9 - 4.2 gm/dL) 2.7 Albumin/Globulin Ratio (1.1 - 2.2 %) 1.6 Lipase (23 - 300 U/L) 272 Hematology CBC w Diff NO MAN DIFF REQ WBC (4.8 - 10.8 /CUMM) 13.6 H RBC (4.20 - 5.40 /CUMM) 4.40 Hgb (12.0 - 16.0 G/DL) 12.5 Hct (37 - 47 %) 37.5 MCV (81.0 - 99.0 FL) 85.2 MCH (27.0 - 31.0 PG) 28.3 RDW (11.5 - 14.5 %) 13.9 Plt Count (130 - 400 /CUMM) 381 MPV (7.4 - 10.4 FL) 7.6 Gran % (42.2 - 75.2 %) 83.1 H Lymphocytes % (20.5 - 51.1 %) 9.5 L Monocytes % (1.7 - 9.3 %) 6.8 Eosinophils % (0 - 5 %) 0.4 Basophils % (0.0 - 2.0 %) 0.2 Absolute Granulocytes (1.4 - 6.5 /CUMM) 11.3 H Absolute Lymphocytes (1.2 - 3.4 /CUMM) 1.3 Absolute Monocytes (0.10 - 0.60 /CUMM) 0.9 H Absolute Eosinophils (0.0 - 0.7 /CUMM) 0 Absolute Basophils (0.0 - 0.2 /CUMM) 0 PUBS MCHC (33.0 - 37.0 G/DL) 33.3 Urines Urinalysis LIGHT H Urine Color (YEL,AMB,STR) YEL Urine Clarity (CLEAR) CLEAR Urine pH (5.0 - 8.0) 6.0 Ur Specific [place] (1.001 - 1.035) 1.015 Urine Protein (NEG,<30 MG/DL) NEG Urine Ketones (NEG) NEG Urine Nitrite (NEG) NEG Urine Bilirubin (NEG) NEG Urine Urobilinogen (0.1 - 1.0 EU/dl) 0.2 Ur Leukocyte Esterase (NEG) NEG Ur Microscopic SEDIMENT EXAMINED Urine RBC (0 - 5 /HPF) 1-3 Urine WBC (0 - 2 /HPF) RARE Urine Bacteria (NEG/NONE) RARE H Urine Hemoglobin (NEG) MOD H Urine Glucose (N MG/DL) NEG Vital Signs Date Time Temp Pulse Resp B/P B/P Pulse O2 O2 Flow FiO2 Mean Ox Delivery Rate 11/21 0658 98.7 90 18 110/60 96 Room Air 11/20 2018 98.2 91 18 106/52 97 Room Air 11/20 1717 97.8 100 20 98/60 99 Room Air 11/20 1509 99 Room Air 11/20 1436 97.0 102 20 111/69 100 Room Air
[2016-11-21 13:49] VITALS: BP 118/78
--- NOTE | 2016-11-21 21:18 | NUR ---
ALERT AND ORIENTED X 3. ON ROOM AIR. DENIES SHORTNESS OF BREATH VITAL SIGNS STABLE. DENIES CHEST PAIN. + PULSES. DENIES NUMBNESS/TINGLING SKIN C/D/I. ABDOMEN DISTENDED AND SOFT. STEADY GAIT MEDICATION GIVEN FOR DISCOMFORT. WILL CONTINUE TO MONITOR
[2016-11-21 21:48] VITALS: BP 108/61
[2016-11-22 06:10] VITALS: BP 100/64
--- NOTE | 2016-11-22 07:08 | PN- Housestaff ---
Subjective Follow-up For: Acute uncomplicated diverticulitis Subjective: I saw and examined the patient today morning She reports doing much better, did have some pain yesterday improved with tramdol, (took Zofran as felt nauseous from tramadol) -- otherwise no acute issues. able to pass faltus, didnt pass any stool so far. Advancing diet. Review of Systems Constitutional: Reports: see HPI. Comments: ROS negative except the above Objective Last 24 Hrs of Vital Signs/I&O Vital Signs Date Time Temp Pulse Resp B/P B/P Pulse O2 O2 Flow FiO2 Mean Ox Delivery Rate 11/22 0610 98.0 76 20 100/64 96 Room Air 11/21 2148 98.7 69 18 108/61 97 Room Air 11/21 1349 99.4 88 20 118/78 97 11/21 1014 Room Air Intake & Output 11/22 0800 11/22 0000 11/21 1600 Intake Total 120 500 770 Output Total 550 Balance 120 500 220 Intake, IV 150 250 Intake, Oral 120 350 520 Number 0 Bowel Movements Output, Urine 550 Physical Exam General Appearance: Alert, Oriented X3, Cooperative, No Acute Distress Skin: No Rashes, No Breakdown HEENT: Atraumatic, PERRLA, EOMI Neck: Supple Cardiovascular: Normal S1, Normal S2 Lungs: Clear to Auscultation, Normal Air Movement Abdomen: Normal Bowel Sounds, Soft, tenderness in the hypogastric region Neurological: Normal Gait, Normal Speech, Strength at 5/5 X4 Ext, Normal Tone, Sensation Intact Extremities: No Clubbing, No Cyanosis, No Edema Current Medications: Current Medications Sig/Susanna Start time Last Medication Dose Route Stop Time Status Admin Acetaminophen 650 MG Q4P PRN 11/21 0945 AC 11/21 PO 1557 Ceftriaxone Sodium 1,000 MG DAILY 11/20 1811 AC 11/21 IV 0906 Famotidine 20 MG BID 11/20 2200 AC 11/21 PO 2155 Hydroxychloroquine 200 MG DAILY 11/20 1821 AC 11/21 Sulfate PO 0907 Ketorolac 15 MG ONCE ONE 11/21 1800 DC 11/21 Tromethamine IV 11/21 1801 1809 Melatonin 10 MG AT BEDTIME 11/21 2200 AC 11/21 PO 2155 Metronidazole 500 MG IQ8 11/21 0000 AC 11/21 N/A 1 UNIT IV 2347 Nicotine 7 MG DAILY 11/20 2300 AC 11/21 TOP 0907 Ondansetron HCl 4 MG ONCE ONE 11/21 1930 DC 11/21 IV 11/21 1931 1926 Oxycodone/ 1 TAB Q4P PRN 11/20 2230 MS 11/21 Acetaminophen PO 0819 Patient Medication 1 ED .STK-MED ONE 11/21 1329 DC Teaching ED 11/21 1330 Sodium Chloride 1,000 ML Q10H 11/20 1900 DC 11/21 IV 0536 Last 24 Hrs of Lab/Omari Results Last 24 Hrs of Labs/Mics: Laboratory Tests 11/22/16 0618: CBC w Diff NO MAN DIFF REQ, RBC 3.88 L, MCV 85.7, MCH 29.0, RDW 13.6, MPV 7.9, Gran % 65.6, Lymphocytes % 19.4 L, Monocytes % 10.5 H, Eosinophils % 3.7, Basophils % 0.8, Absolute Granulocytes 4.1, Absolute Lymphocytes 1.2, Absolute Monocytes 0.7 H, Absolute Eosinophils 0.2, Absolute Basophils 0.1, PUBS MCHC 33.9 Assessment/Plan Assessment: Patient is a 50-year-old female with past medical history significant for SVT, rectal bleeding, ocular migraines, recurrent diverticulitis, recently diagnosed limited arthritis (started on plaquinel) presented to the [facility] due to lower abdominal pain and diarrhea started 1 day prior to admission. she is afebrile, pulse 102, blood pressure 98/60 mmHg on room air at admission. Significant labs include white count of 13.6. Imaging shows scattered cholestatic diverticulosis involving descending and rectosigmoid colon along with circumferential thickening and pericolic inflammation surrounding sigmoid colon. Patient is admitted for another episode of diverticulitis. Admitted to general medicine floor Acute uncomplicated diverticulitis * Continue IV ceftriaxone and metronidazole - we will switch to oral tomorrow * Started on regular diet * Follow-up with cultures * Pain management with Tylenol, ondansetron for nausea * Pepcid 20 mg twice a day * Stool guaiac if she had any bowel movement - No BM yet --> milk of magnesium and colace provided * Given Diverticulitis we will avoid bowel stimulants like SennaS, Docusate, miralax at this point. * Daily CBC to monitor white count History of rheumatoid arthritis * Continue Plaquenil 200 mg daily Nicotine dependence * Smoking 1 pack per day for the past 30 years * Nicotine patch 7 mg daily DVT prophylaxis * Alps CODE STATUS * Full code Problem List: 1. Diverticulitis 2. Back pain Pain Ratin Pain Location: lower abdominal region Pain Goal: Pain 4 or less Pain Plan: tylenol prn Tomorrow's Labs & Rationales: cbc to monitor white count
[2016-11-22 08:09] LABS: ABSOLUTE BASOPHIL COUNT 0.1 /CUMM (0.0-0.2); ABSOLUTE EOSINOPHIL COUNT 0.2 /CUMM (0.0-0.7); ABSOLUTE LYMPH COUNT 1.2 /CUMM (1.2-3.4); MEAN CORPUSCULAR HGB CONC 33.9 G/DL (33.0-37.0); MEAN PLATELET VOLUME 7.9 FL (7.4-10.4)
[2016-11-22 08:31] LABS: ABSOLUTE GRANULOCYTE CT 4.1 /CUMM (1.4-6.5); ABSOLUTE MONOCYTE COUNT 0.7 /CUMM (0.10-0.60); BASOPHIL % 0.8 % (0.0-2.0); EOSINOPHIL % 3.7 % (0-5); GRANULOCYTE % 65.6 % (42.2-75.2); HEMATOCRIT 33.3 % (37-47); MEAN CORPUSCULAR VOLUME 85.7 FL (81.0-99.0); PLATELET COUNT 320 /CUMM (130-400); RBC DISTRIBUTION WIDTH 13.6 % (11.5-14.5); RED BLOOD CELL CT 3.88 /CUMM (4.20-5.40); WHITE BLOOD CELL COUNT 6.2 /CUMM (4.8-10.8)
--- NOTE | 2016-11-22 09:30 | PN- Att Addend ---
Attending Addendum Attending Brief Note Patient reports improved abdominal discomfort however she has had no bowel movements. General Appearance: Alert, No Acute Distress Skin: Grossly normal HEENT: PEERLA Neck: Supple, No JVD Cardiovascular: Regular Rate, Normal S1, Normal S2, No Murmurs Lungs: Clear to Auscultation, Normal Air Movement Abdomen: distended and sluggish bowel sounds Assessment 50-year-old with history of SVT, GI bleeds, recurrent diverticulitis in the past and according to her her last episode was about 3 years back and last colonoscopy 4 years back now presenting with nausea vomiting and diarrhea and CAT scan suggesting non-complicated diverticulitis. She is currently tolerating clear liquid diet and on IV antibiotics. We will advance diet. Plan Advance to full liquid diet Continue current IV antibiotics Avoid narcotics, Tylenol for pain when necessary Continue other home meds DVT prophylaxis Current Medications Sig/Susanna Start time Last Medication Dose Route Stop Time Status Admin Acetaminophen 650 MG Q4P PRN 11/21 0945 AC 11/21 PO 1557 Ceftriaxone Sodium 1,000 MG DAILY 11/20 1811 11/22 IV 0905 Famotidine 20 MG BID 11/20 2200 AC 11/22 PO 0905 Hydroxychloroquine 200 MG DAILY 11/20 1821 AC 11/22 Sulfate PO 0905 Ketorolac 15 MG ONCE ONE 11/21 1800 MA 11/21 Tromethamine IV 11/21 1801 1809 Melatonin 10 MG AT BEDTIME 11/21 2200 11/21 PO 2155 Metronidazole 500 MG IQ8 11/21 0000 AC 11/22 N/A 1 UNIT IV 0905 Nicotine 7 MG DAILY 11/20 2300 11/22 TOP 0905 Ondansetron HCl 4 MG ONCE ONE 11/21 1930 MA 11/21 IV 11/21 1931 1926 Oxycodone/ 1 TAB Q4P PRN 11/20 2230 MA 11/21 Acetaminophen PO 0819 Patient Medication 1 ED .STK-MED ONE 11/21 1329 DC Teaching ED 11/21 1330 Sodium Chloride 1,000 ML Q10H 11/20 1900 MA 11/21 IV 0536 Laboratory Tests 11/22 0618 Hematology CBC w Diff NO MAN DIFF REQ WBC (4.8 - 10.8 /CUMM) 6.2 RBC (4.20 - 5.40 /CUMM) 3.88 L Hgb (12.0 - 16.0 G/DL) 11.3 L Hct (37 - 47 %) 33.3 L MCV (81.0 - 99.0 FL) 85.7 MCH (27.0 - 31.0 PG) 29.0 RDW (11.5 - 14.5 %) 13.6 Plt Count (130 - 400 /CUMM) 320 MPV (7.4 - 10.4 FL) 7.9 Gran % (42.2 - 75.2 %) 65.6 Lymphocytes % (20.5 - 51.1 %) 19.4 L Monocytes % (1.7 - 9.3 %) 10.5 H Eosinophils % (0 - 5 %) 3.7 Basophils % (0.0 - 2.0 %) 0.8 Absolute Granulocytes (1.4 - 6.5 /CUMM) 4.1 Absolute Lymphocytes (1.2 - 3.4 /CUMM) 1.2 Absolute Monocytes (0.10 - 0.60 /CUMM) 0.7 H Absolute Eosinophils (0.0 - 0.7 /CUMM) 0.2 Absolute Basophils (0.0 - 0.2 /CUMM) 0.1 PUBS MCHC (33.0 - 37.0 G/DL) 33.9 Vital Signs Date Time Temp Pulse Resp B/P B/P Pulse O2 O2 Flow FiO2 Mean Ox Delivery Rate 11/22 0610 98.0 76 20 100/64 96 Room Air 11/21 2148 98.7 69 18 108/61 97 Room Air 11/21 1349 99.4 88 20 118/78 97 11/21 1014 Room Air
[2016-11-22 14:41] VITALS: BP 92/58
[2016-11-22 23:03] VITALS: BP 104/60
[2016-11-23 06:52] VITALS: BP 104/60
--- NOTE | 2016-11-23 06:56 | PN- Housestaff ---
Subjective Follow-up For: Acute uncomplicated diverticulitis Subjective: I saw and examined the patient today morning she is doing very well. still had some abdominal pain but much better. Mild nausea without any episodes of vomiting. No bowel movement yet. Review of Systems Constitutional: Reports: see HPI. Objective Last 24 Hrs of Vital Signs/I&O Vital Signs Date Time Temp Pulse Resp B/P B/P Pulse O2 O2 Flow FiO2 Mean Ox Delivery Rate 11/23 0652 98.0 80 16 104/60 98 11/22 2303 98.0 76 18 104/60 99 Room Air 11/22 1441 98.1 79 20 92/58 97 Intake & Output 11/23 0800 11/23 0000 11/22 1600 Intake Total 100 900 Output Total Balance 100 900 Intake, IV 100 Intake, Oral 900 Patient 68.946 kg Weight Physical Exam General Appearance: Alert, Oriented X3, Cooperative Skin: No Rashes, No Breakdown HEENT: Atraumatic, PERRLA, EOMI Neck: Supple Cardiovascular: Normal S1, Normal S2 Lungs: Clear to Auscultation, Normal Air Movement Abdomen: Normal Bowel Sounds, mild tenderness in the hypogastric region Neurological: Normal Gait, Normal Speech, Strength at 5/5 X4 Ext, Normal Tone, Sensation Intact, Cranial Nerves 3-12 NL Extremities: No Clubbing, No Cyanosis, No Edema Vascular: Normal Pulses, Pulses Symmetrical Current Medications: Current Medications Sig/Susanna Start time Last Medication Dose Route Stop Time Status Admin Acetaminophen 650 MG Q4P PRN 11/21 0945 AC 11/21 PO 1557 Ceftriaxone Sodium 1,000 MG DAILY 11/20 1811 AC 11/23 IV 0820 Docusate Sodium 100 MG BID 11/22 220 AC 11/22 PO 2125 Famotidine 20 MG BID 11/20 2200 AC 11/23 PO 0821 Hydroxychloroquine 200 MG DAILY 11/20 1821 AC 11/23 Sulfate PO 08 Magnesium Hydroxide 30 ML AT BEDTIME PRN 11/22 1630 AC PO Melatonin 10 MG AT BEDTIME 11/21 2199 AC 11/22 PO 2124 Metronidazole 500 MG IQ8 11/21 0000 AC 11/23 N/A 1 UNIT IV 0820 Nicotine 7 MG DAILY 11/20 2300 AC 11/22 TOP 0905 Last 24 Hrs of Lab/Omari Results Last 24 Hrs of Labs/Mics: Laboratory Tests 11/23/16 0618: CBC w Diff NO MAN DIFF REQ, RBC 3.84 L, MCV 85.9, MCH 28.9, RDW 13.8, MPV 8.0, Gran % 62.5, Lymphocytes % 23.9, Monocytes % 8.6, Eosinophils % 4.3, Basophils % 0.7, Absolute Granulocytes 3.7, Absolute Lymphocytes 1.4, Absolute Monocytes 0.5 , Absolute Eosinophils 0.3, Absolute Basophils 0, PUBS MCHC 33.6 11/22/16 1223: Urinalysis LIGHT H, Urine Color CUAUHT[place], Urine Clarity CLEAR, Urine pH 6.0, Ur Specific [place] >= 1.030, Urine Protein 30 H, Urine Ketones TRACE H, Urine Nitrite POS H, Urine Bilirubin NEG@ICTO, Urine Urobilinogen 1.0, Ur Leukocyte Esterase TRACE H, Ur Microscopic SEDIMENT EXAMINED, Urine RBC 15-25 H, Urine WBC 3-5 H, Ur Epithelial Cells MOD H, Urine Bacteria MANY H, Urine Mucus MOD H, Urine Hemoglobin MOD H, Urine Glucose NEG Assessment/Plan Assessment: Patient is a 50-year-old female with past medical history significant for SVT, rectal bleeding, ocular migraines, recurrent diverticulitis, recently diagnosed limited arthritis (started on plaquinel) presented to the [facility] ER due to lower abdominal pain and diarrhea started 1 day prior to admission. she is afebrile, pulse 102, blood pressure 98/60 mmHg on room air at admission. Significant labs include white count of 13.6. Imaging shows scattered cholestatic diverticulosis involving descending and rectosigmoid colon along with circumferential thickening and pericolic inflammation surrounding sigmoid colon. Patient is admitted for another episode of diverticulitis. Admitted to general medicine floor Acute uncomplicated diverticulitis * Switched to ciprofloxacin and flagyl for a total of 14days. * Tolerating diet well * Pain management with Tylenol, ondansetron for nausea * Pepcid 20 mg twice a day * Given Diverticulitis we will avoid bowel stimulants like SennaS, Docusate, miralax at this point. History of rheumatoid arthritis * Continue Plaquenil 200 mg daily Nicotine dependence * Smoking 1 pack per day for the past 30 years * Nicotine patch 7 mg daily DVT prophylaxis * Alps CODE STATUS * Full code Problem List: 1. Abdominal pain 2. Diverticulitis 3. Back pain Pain Ratin Pain Location: lower abdominal region Pain Goal: Pain 4 or less Pain Plan: Tylenol Tomorrow's Labs & Rationales: NONE
[2016-11-23 08:42] LABS: ABSOLUTE BASOPHIL COUNT 0 /CUMM (0.0-0.2); ABSOLUTE EOSINOPHIL COUNT 0.3 /CUMM (0.0-0.7); ABSOLUTE GRANULOCYTE CT 3.7 /CUMM (1.4-6.5); ABSOLUTE LYMPH COUNT 1.4 /CUMM (1.2-3.4); ABSOLUTE MONOCYTE COUNT 0.5 /CUMM (0.10-0.60); BASOPHIL % 0.7 % (0.0-2.0); EOSINOPHIL % 4.3 % (0-5); GRANULOCYTE % 62.5 % (42.2-75.2); HEMATOCRIT 32.9 % (37-47); MEAN CORPUSCULAR HGB 28.9 PG (27.0-31.0); MEAN CORPUSCULAR HGB CONC 33.6 G/DL (33.0-37.0); MEAN CORPUSCULAR VOLUME 85.9 FL (81.0-99.0); PLATELET COUNT 327 /CUMM (130-400); RBC DISTRIBUTION WIDTH 13.8 % (11.5-14.5); RED BLOOD CELL CT 3.84 /CUMM (4.20-5.40)
--- NOTE | 2016-11-23 09:01 | PN- Att Addend ---
Attending Addendum Attending Brief Note Patient reports improved abdominal discomfort. She is tolerating oral diet and had a bowel movement last night. General Appearance: Alert, No Acute Distress Skin: Grossly normal HEENT: PEERLA Neck: Supple, No JVD Cardiovascular: Regular Rate, Normal S1, Normal S2, No Murmurs Lungs: Clear to Auscultation, Normal Air Movement Abdomen: distended and sluggish bowel sounds Assessment 50-year-old with history of SVT, GI bleeds, recurrent diverticulitis in the past and according to her her last episode was about 3 years back and last colonoscopy 4 years back now presenting with nausea vomiting and diarrhea and CAT scan suggesting non-complicated diverticulitis. She is currently tolerating clear liquid diet and on IV antibiotics. Patient is tolerating oral diet and having bowel movement. We will transition to oral antibiotics and discharge home. Plan Change to Cipro and Flagyl for a total 14 days Avoid narcotics, Tylenol for pain when necessary Continue other home meds Stable for discharge home Current Medications Sig/Susanna Start time Last Medication Dose Route Stop Time Status Admin Acetaminophen 650 MG Q4P PRN 11/21 0945 AC 11/21 PO 1557 Ceftriaxone Sodium 1,000 MG DAILY 11/20 1811 AC 11/23 IV 0820 Docusate Sodium 100 MG BID 11/22 2200 AC 11/22 PO 2125 Famotidine 20 MG BID 11/20 2200 AC 11/23 PO 0821 Hydroxychloroquine 200 MG DAILY 11/20 1821 AC 11/23 Sulfate PO 0821 Ketorolac 15 MG ONCE ONE 11/22 1000 DC 11/22 Tromethamine IV 11/22 1001 1137 Magnesium Hydroxide 30 ML AT BEDTIME PRN 11/22 1630 AC PO Melatonin 10 MG AT BEDTIME 11/21 2200 AC 11/22 PO 2124 Metronidazole 500 MG IQ8 11/21 0000 AC 11/23 N/A 1 UNIT IV 0820 Nicotine 7 MG DAILY 11/20 2300 AC 11/22 TOP 0905 Ondansetron HCl 4 MG ONCE PRN 11/22 0945 DC 11/22 PO 11/22 1100 1137 Tramadol HCl 50 MG ONCE ONE 11/22 0945 CAN PO 11/22 0946 Laboratory Tests 11/23 11/22 0618 1223 Hematology CBC w Diff Pending WBC Pending RBC Pending Hgb Pending Hct Pending MCV Pending MCH Pending RDW Pending Plt Count Pending MPV Pending PUBS MCHC Pending Urines Urinalysis LIGHT H Urine Color (YEL,AMB,STR) CUAUHTEMOC Urine Clarity (CLEAR) CLEAR Urine pH (5.0 - 8.0) 6.0 Ur Specific [place] (1.001 - 1.035) >= 1.030 Urine Protein (NEG,<30 MG/DL) 30 H Urine Ketones (NEG) TRACE H Urine Nitrite (NEG) POS H Urine Bilirubin (NEG) NEG@ICTO Urine Urobilinogen (0.1 - 1.0 EU/dl) 1.0 Ur Leukocyte Esterase (NEG) TRACE H Ur Microscopic SEDIMENT EXAMINED Urine RBC (0 - 5 /HPF) 15-25 H Urine WBC (0 - 2 /HPF) 3-5 H Ur Epithelial Cells (NONE,FEW) MOD H Urine Bacteria (NEG/NONE) MANY H Urine Mucus (FEW,NONE) MOD H Urine Hemoglobin (NEG) MOD H Urine Glucose (N MG/DL) NEG Vital Signs Date Time Temp Pulse Resp B/P B/P Pulse O2 O2 Flow FiO2 Mean Ox Delivery Rate 11/23 0652 98.0 80 16 104/60 98 11/22 2303 98.0 76 18 104/60 99 Room Air 11/22 1441 98.1 79 20 92/58 97
--- NOTE | 2016-11-23 10:26 | Patient Discharge Instructions ---
Discharge Instructions General Discharge Information You were seen/treated for: Acute uncomplicated Diverticulitis Special Instructions: Please follow up with in a week Please follow up with [facility] emergency services manager in a week Please take your medications regularly Diet Continue normal diet: Yes Recommended Diet: diverticular diet Activity Full Activity/No Limits: Yes Acute Coronary Syndrome Inclusion Criteria At DC or during hospital stay patient has or had the following: ACS DIAGNOSIS No Discharge Core Measures Meds if any: Prescribed or Continued at Discharge Meds if any: NOT Prescribed or Continued at Discharge Congestive Heart Failure Inclusion Criteria At DC or during hospital stay patient has or had the following: CHF DIAGNOSIS No Discharge Core Measures Meds if any: Prescribed or Continued at Discharge Meds if any: NOT Prescribed or Continued at Discharge Cerebrovascular accident Inclusion Criteria At DC or during hospital stay patient has or had the following: CVA/TIA Diagnosis No Discharge Core Measures Meds if any: Prescribed or Continued at Discharge Meds if any: NOT Prescribed or Continued at Discharge Venous thromboembolism Inclusion Criteria VTE Diagnosis No VTE Type NONE VTE Confirmed by (Test) NONE Discharge Core Measures - Per Current guidelines, there needs to be overlap - treatment for the first 5 days of Warfarin therapy. - If discharged on Warfarin prior to 5 days of - overlap therapy, the patient will need to be - assessed for post discharge needs including - *Post discharge parental anticoagulation - *Warfarin and/or parental anticoagulation education - *Follow up date to check INR post discharge At least 5 days overlap therapy as Inpatient No Meds if any: Prescribed or Continued at Discharge Note: Overlap Therapy is Warfarin and Anticoagulant Meds if any: NOT Prescribed or Continued at Discharge
[2016-11-23] MEDS ORDERED: FLAGYL500 MG PO (10:36)
[2016-11-23] MEDS ORDERED: CIPROFLOXACIN500 M2 PO (10:36)
--- NOTE | 2016-11-23 11:38 | Discharge Summary ---
Visit Information Visit Dates Admission Date: 11/20/16 Discharge Date: 11/23/16 Hospital Course Course Attending Physician: CHAN RAMIREZ MD Primary Care Physician: CHAN RAMIREZ MD Hospital Course: Patient is a 50-year-old female with past medical history significant for SVT, rectal bleeding, ocular migraines, recurrent diverticulitis, recently diagnosed limited arthritis (started on plaquinel) presented to the [facility] due to lower abdominal pain and diarrhea started 1 day prior to admission. she is afebrile, pulse 102, blood pressure 98/60 mmHg on room air at admission. Significant labs include white count of 13.6. Imaging shows scattered cholestatic diverticulosis involving descending and rectosigmoid colon along with circumferential thickening and pericolic inflammation surrounding sigmoid colon. Patient is admitted for another episode of diverticulitis. Admitted to general medicine floor Acute uncomplicated diverticulitis Patient was initially started on IV ceftriaxone and flagyl initially, she started to improved however her pain still persisted. She received 3 day IV course and switched to oral medications. she was discharged on cipro 500mg BID, metronidazole 500mg TID for a total of 14days. she was intially started on clear liquid diet, gradually upgraded to regualr diet. She was avoided on pain medications as it can slow down the bowel movement. She was given tylenol and occasionally toradol. Maintained on pepcid 20mg BID. History of rheumatoid arthritis we continued Plaquenil 200 mg daily Nicotine dependence he used to smoke 1 pack per day for the past 30 years. Provided with Nicotine patch 7 mg daily DVT prophylaxis * Alps CODE STATUS * Full code Allergies: Coded Allergies: codeine (HIVES AND GI 07/22/16) naproxen (hernández gi 11/20/16) ibuprofen (ABDOMINAL PAIN 07/22/16) oxycodone (PROJECTILE VOMITING 11/20/16) Significant Procedures: CT abdomen and pelvis on : Scattered colonic diverticulosis, notably involving the descending and rectosigmoid colon. Circumferential thickening and pericolonic inflammatory changes surrounding a segment of the sigmoid colon, spanning approximately 7.8 cm in length within the left lower quadrant of the abdomen. Primary diagnostic consideration is for acute uncomplicated sigmoid diverticulitis. No extraluminal foci of air to suggest perforation and no pericolonic fluid collections. Pertinent Lab Results: as above Disposition Summary Disposition Principal Diagnosis: Acute uncomplicated diverticulitis Additional Diagnosis: Rheumatoid arthritis Nicotine dependence Discharge Disposition: home or self care Discharge Instructions General Discharge Information Code Status: Full Code Patient's Diet: Regular diet/diverticulitis diet Patient's Activity: activity as tolerated Follow-Up Instructions/Appts: Please follow up with in a week Please follow up with art coordinator in a week Please take your medications regularly Medications at Discharge Discharge Medications: Continue taking these medications: Hydroxychloroquine Sulfate (Hydroxychloroquine Sulfate) 200 MG TABLET 1 Tablet ORAL DAILY Qty = 30 Comments: Last Taken: 11/23/16 Time: 8 AM Ranitidine HCl (Zantac) 150 MG TABLET 2 Tablet ORAL TWICE DAILY Comments: NOT GIVEN IN HOSPITAL ALTERNATIVE MED PROVIDED Last Taken: 11/23/16 Time: 8 AM Cholecalciferol (Vitamin D3) (Vitamin D) 2,000 UNIT TABLET 1 Tablet ORAL DAILY Comments: NOT GIVEN IN HOSPITAL Magnesium Oxide (Magnesium) 500 MG CAPSULE 1 Capsule ORAL DAILY Comments: NOT GIVEN IN HOSPITAL Start taking the following new medications: Ciprofloxacin HCl (Ciprofloxacin HCl) 500 MG TABLET 1 Tablet ORAL TWICE DAILY Qty = 20 No Refills Comments: ALTERNATIVE IV MEDICATION PROVIDED WHILE IN HOSPITAL Last Taken: 11/23/16 Time: 8 AM Metronidazole (Flagyl) 500 MG TABLET 1 Tablet ORAL THREE TIMES DAILY Qty = 33 No Refills Comments: IV FLAGYL ADMINISTERED WHILE IN HOSPITAL Last Taken: 11/23/16 Time: 8 AM Copies To: CHAN RAMIREZ MD Attending Review Statement Documenting Attending: CHAN RAMIREZ MD
== END 2016-11-23 11:56 | DRG 392 ==
LOC: ERH 14:19 → 2NB 17:36 → ERHI 17:36 → ENRESERV 18:56 → ENTRNSPT 19:29 → 2NB 19:35 → CMPTRNSPT 20:00 → ENPENDDIS 11-23 10:47 → 2NB 11-23 11:56
PROVIDERS: Emergency Medicine; Internal Medicine; ADMIT Internal Medicine
DX: K57.32 Diverticulitis of large intestine without perforation or abscess without bleeding (principal); F17.210 Nicotine dependence, cigarettes, uncomplicated; M06.9 Rheumatoid arthritis, unspecified; K21.9 Gastro-esophageal reflux disease without esophagitis
CPT/HCPCS: 2NBSP; 36415; 74177; 81001; 87040; 96374; 96375; J0696; J2405; J3101

== ENCOUNTER 2017-06-04 17:49 | Emergency (ER) | payer OTHER ==
[~2017-06-04] VITALS: Ht 154.9 cm; Wt 64.4 kg
[~2017-06-04 17:49] MED LIST changes: +CIPROFLOXACIN500 M2 PO; +ENDOCET 5-3251 EACH PO; +FLAGYL500 MG PO; +HYDROXYCHLOROQ200 M2 PO; +MAGNESIUM500 M2 PO; +ONDANSETRON HCL4 MG PO; +PERCOCET 5-3251 EACH PO; +PLAQUENIL200 M1 PO; +TURMERIC500 M1 PO; +VITAMIN D2000 UNI1 PO; +ZANTAC150 M1 PO; +ZOFRAN ODT4 M1 SL
--- NOTE | 2017-06-04 20:49 | ED THROAT/DENTAL COMPLAINT ---
History of Present Illness General Chief Complaint: General Adult Stated Complaint: LOCKED JAW Source: patient Exam Limitations: no limitations Vital Signs & Intake/Output Vital Signs & Intake/Output Vital Signs Date Time Temp Pulse Resp B/P B/P Pulse O2 O2 Flow FiO2 Mean Ox Delivery Rate 06/04 2045 96.8 80 18 110/76 98 Room Air 06/04 1800 97.8 86 18 112/68 100 Room Air Allergies Coded Allergies: codeine (HIVES AND GI 07/22/16) naproxen (hernández gi 11/20/16) prednisone (TONGUE SWELLING 06/04/17) ibuprofen (ABDOMINAL PAIN 07/22/16) oxycodone (PROJECTILE VOMITING 11/20/16) Reconcile Medications Cholecalciferol (Vitamin D3) (Vitamin D) 2,000 UNIT TABLET 1 TAB PO DAILY SUPPLEMENT (Reported) Hydroxychlorquine (Plaquenil) 200 MG TABLET 1 TAB PO BID rheumatoid arthritis Ketorolac Tromethamine 10 MG TABLET 1 TAB PO Q6P PRN tmj pain Magnesium Oxide (Magnesium) 500 MG CAPSULE 1 CAP PO DAILY supplement ( Reported) Ondansetron HCl 4 MG TABLET 1 TAB PO 4 TIMES/DAY PRN Nausea Orphenadrine Citrate 100 MG TABLET.ER 1 TAB PO BIDP PRN muscle spasm\ Oxycodone HCl/Acetaminophen (Endocet 5-325 Tablet) 5 MG-325 MG TABLET 1 TAB PO 4 TIMES/DAY PRN joint pain Ranitidine HCl (Zantac) 150 MG TABLET 2 TAB PO BID GI (Reported) Turmeric Root Extract (Turmeric) 500 MG CAPSULE SUPPLEMENT (Reported) Triage Note: PT STATES SHE HAS RA AND LAST NIGHT SHE HAD PAIN IN HER FACE LERFT SIDE. PT REPORTS SHE TOOK HER PAIN MED AND STATES HER JAW FEELS WORSE SHE CAN'T OPEN HER MOUTH OR BITE DOWN. PT CALLED HER RA AND WAS TOLD TO COME TO ED Triage Nurses Notes Reviewed? yes Onset: Abrupt Duration: hour(s):, continues in ED Timing: single episode today Injury Environment: home Severity: severe Modifying Factors: Worsens With: eating, movement. HPI: Patient presents for evaluation of an abrupt onset of sharp stabbing pain in front of the left ear followed by malocclusion and decreased mobility of the jaw. Patient states that he is having severe pain whenever she tries to open and close her mouth or move her jaw around. She states she can't bring her teeth together on the left side. She denies any known trauma or prior episodes. She states the pain began while she was watching TV at home. It awoke her from sleep at about 1:00 this morning. Past History Travel History Traveled to [place] past 21 day No Medical History Any Pertinent Medical History? see below for history Neurological: migraine EENT: NONE Cardiovascular: SVT Respiratory: NONE Gastrointestinal: RECTAL BLEEDING Hepatic: NONE Renal: NONE Musculoskeletal: rheumatoid arthritis Psychiatric: NONE Endocrine: NONE Blood Disorders: NONE Cancer(s): NONE History of MRSA: No History of VRE: No History of CDIFF: No Surgical History Surgical History: appendectomy, hysterectomy, TONSILLECTOMY OVARIAN CYST REMOVAL Psychosocial History Who do you live with Spouse Services at Home None What is your primary language Frisian Tobacco Use: Current Daily Use Daily Tobacco Use Amount/Type: => 5 Cigarettes daily ETOH Use: occasional use Illicit Drug Use: denies illicit drug use Family History Hx Contributory? No Review of Systems Review of Systems Constitutional: Reports: no symptoms. EENTM: Reports: see HPI. Respiratory: Reports: no symptoms. Cardiovascular: Reports: no symptoms. GI: Reports: no symptoms. Genitourinary: Reports: no symptoms. Musculoskeletal: Reports: no symptoms. Skin: Reports: no symptoms. Neurological/Psychological: Reports: no symptoms. Hematologic/Endocrine: Reports: no symptoms. Immunologic/Allergic: Reports: no symptoms. All Other Systems: Reviewed and Negative Physical Exam Physical Exam Mouth/Throat: SEE BELOW Comments: Gen.: Well-nourished, well-developed, no acute respiratory distress. Head: Normocephalic, atraumatic. Eyes: Normal inspection bilaterally Ears: Normal inspection bilaterally Nose: Normal inspection Throat/mouth : Moist mucosa, decreased opening of the mouth, normal movement of the left TMJ with opening and closing of the mouth, no apparent ecchymoses and soft tissue swelling or erythema in the area of the left TMJ. Neck: Supple, full range of motion, no goiter Lungs: Quiet respirations Back: Normal range of motion Extremities: Normal range of motion grossly, no cyanosis clubbing or edema of the upper extremities Neurologic: Cranial nerves grossly intact, speech is clear Skin: warm and dry Psychiatric: Calm, cooperative, no apparent delusions or hallucinations Core Measures ACS in differential dx? No Sepsis Present: No Sepsis Focused Exam Completed? No Progress Differential Diagnosis: TMJ DISLOCATION, TMJ INFLAMMATION Plan of Care: Orders Procedure Date/time Status XRY-BILATERAL TMJS 06/04 2057 Active Current Medications Sig/Susanna Start time Last Medication Dose Stop Time Status Admin Ketorolac 60 MG ONCE ONE 06/04 2114 UNVr Tromethamine 06/04 2115 (Toradol) Diagnostic Imaging: Discussed w/RAD: Radiology Read. Radiology Impression: PATIENT: AXEL MANZANARES PRESENT AGE: 51 PATIENT ACCOUNT NO: [id number] : 69 LOCATION: [facility] ORDERING PHYSICIAN: Marino Meza MD SERVICE DATE: 06/04/17-2057 EXAM TYPE : RAD - XRY-BILATERAL TMJS EXAMINATION: XR TEMPOROMANDIBULAR JOINT, BILATERAL CLINICAL INFORMATION: Joint pain. Malocclusion. COMPARISON: None TECHNIQUE: Views of the temporal mandibular joint were obtained AP. 2 views on the right side, open and closed mouth, 2 views of the left side, open and close mouth. FINDINGS: There is no arthrosis of the TMJ joints. No focal bone lesion. No fracture. There is limited translocation of the right and left TMJ joints. The articular condyle of the mandible translocates anterior to the edge of the articular eminence, does not fully open. IMPRESSION: Limited translocation of the right and left TMJ joint with mouth opening. This raises question of internal derangement. Further imaging with MRI could be helpful for further assessment. 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 <Electronically signed in Other Vendor System> SIGNED BY: Yusef Hartley MD 06/04/172204 Comments: 06/04/2017 10:31:30 PM I have updated Dang on her x-ray report. With my discussion it is now comes to light that the patient has been chewing a lot of taffy recently. Departure Departure Disposition: HOME OR SELF CARE Condition: Stable Clinical Impression Primary Impression: TMJ (sprain of temporomandibular joint) Qualifiers: Encounter type: initial encounter Qualified Code: S03.40XA - Sprain of jaw, unspecified side, initial encounter Referrals: Farens MD,Jez. (PCP/Family) Additional Instructions: Ketorolac as prescribed for TMJ pain. Norflex as needed for muscle tightness or spasms. Clear liquid diet or at the most a soft mechanical diet until you begin feeling better. Follow-up with your primary care physician or your dentist for reevaluation this week. Return if any concerns or sudden worsening. Departure Forms: Customer Survey General Discharge Information Prescriptions: Current Visit Scripts Ketorolac Tromethamine 1 TAB PO Q6P PRN tmj pain #16 TAB Orphenadrine Citrate 1 TAB PO BIDP PRN muscle spasm\ #20 TAB
--- NOTE | 2017-06-04 22:05 | RADIOLOGY REPORT ---
EXAMINATION: XR TEMPOROMANDIBULAR JOINT, BILATERAL CLINICAL INFORMATION: Joint pain. Malocclusion. COMPARISON: None TECHNIQUE: Views of the temporal mandibular joint were obtained AP. 2 views on the right side, open and closed mouth, 2 views of the left side, open and close mouth. FINDINGS: There is no arthrosis of the TMJ joints. No focal bone lesion. No fracture. There is limited translocation of the right and left TMJ joints. The articular condyle of the mandible translocates anterior to the edge of the articular eminence, does not fully open. IMPRESSION: Limited translocation of the right and left TMJ joint with mouth opening. This raises question of internal derangement. Further imaging with MRI could be helpful for further assessment.
[2017-06-04] MEDS ORDERED: ORPHENADRINE C100 MG PO (22:34)
[2017-06-04] MEDS ORDERED: KETOROLAC TROME10 M1 PO (22:34)
[2017-06-04 23:06] VITALS: BP 115/78
== END 2017-06-04 23:07 ==
LOC: ERH 17:49
DX: S03.42XA Sprain of jaw, left side, initial encounter (principal); X58.XXXA Exposure to other specified factors, initial encounter; Y92.9 Unspecified place or not applicable; Y93.9 Activity, unspecified
CPT/HCPCS: 70330; 96372; J1885